=== PATIENT | female | born 1935 | race Caucasian/White ===

== ENCOUNTER 2024-10-05 12:57 | Observation (INO) | payer MEDICARE, BC, SELFPAY ==
[2024-10-05 13:35] VITALS: PULSE 94; O2SAT 99; BMI 19.8
--- NOTE | 2024-10-05 13:38 | EKG_ITS ---
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
--- NOTE | 2024-10-05 13:38 | XR_ITS ---
Examination: CT brain head without contrast. 2-D sagittal coronal reconstructions Date and time of exam:October 05, 2024 1412 hours INDICATIONS: Slurred speech expressive aphasia beginning 30 minutes ago CTDI: vol (mGy):47 DLP: (mGycm):918 Technique: Multiple CT axial sections of the brain have been obtained, 5 mm slice thickness. Contrast has not been administered. 2-D sagittal, coronal reconstructions have been obtained Low dose protocols were performed. One or more of the following dose reduction techniques were used; automated exposure control, adjustment of the mA and/or KV according to patient size, use of iterative reconstruction technique. Findings: No significant ventricular enlargement. Intra-axial or extra-axial hemorrhage density is not seen. No mass effect or midline shift Basal cisterns are not remarkable. Fourth ventricle is midline. Cranial vault intact. Impression: Negative for acute hemorrhage, mass effect or midline shift Consider brain MRI follow-up, stroke protocol
--- NOTE | 2024-10-05 13:38 | PD.EDADULT ---
ED General RME/HPI General Chief complaint: General Adult/Misc Complain Stated complaint: WEAKNESS Time Seen by Provider: 10/05/24 13:31 Arrival date/time: 10/05/24 12:57 CC: Garbled speech HPI patient states that she approximately 45 minutes ago and lasting for approximately 30 minutes the patient had garbled speech and was unable to express herself. Patient had a similar episode 3 weeks ago and had a complete stroke workup at [facility]. Patient was diagnosed with a TIA. Patient is awake alert oriented x 3 no focal deficits not in any acute distress with no complaints. Related Data Allergies Allergy/AdvReac Type Severity Reaction Status Date / Time clopidogrel [From Plavix] Allergy Rash Verified 10/05/24 13:41 Review of Systems Review of Systems Narrative Review of Systems: GEN: No fever, no chills, no weight loss EYES: No discharge, no visual changes, no pain HEENT: No ear pain, no congestion, no sore throat PULM: No shortness of breath, no cough, no congestion CV: No chest pain, no dyspnea on exertion, no palpitations GI: No nausea, no vomiting, no diarrhea, no pain, no constipation : No frequency, no urgency, no dysuria MUSC/SKEL: No joint pain, no back pain SKIN: No rash PSYCH: No hallucinations, no depression HEME/LYMPH: No easy bleeding or bruising tendencies NEURO: No weakness, no headache ED Exam Narrative Physical exam: [General: Not in any acute distress Head normocephalic HEENT: Eyes: Pale. The patient had LASIK surgery in both eyes, pupils are PERRLA EOMs are intact. Nose no rhinorrhea, mouth smile symmetrical pink dry membranes uvula is midline swallow symmetrical no focal deficits all other subsystems of ATTR within acceptable limits Neck is supple nontender, no JVD Chest equal chest rise nontender to palpation Respiratory: Clear to auscultation no wheezes crackles or rubs CV: Rate rhythm is regular no murmurs rubs or clicks Abdomen is soft nontender no masses positive bowel sounds all 4 quadrants Back: No CVA tenderness no spinous process tenderness from cervical spine thoracic and lumbar spine Skin: Intact no petechiae rash induration ulceration or crepitus Extremities: Moving all extremity against resistance cap refill less than 2 seconds neurosensory intact Neuro: Awake alert oriented x3 Glascow coma 15 no focal deficits] cranial nerves II through XII are grossly intact. Course Course Course Narrative: Patient's case discussed with Dr. Jluis Rubin for Dr. Villavicencio who agrees to except the patient for admission. Quality Measures none Orders Category Date Time Status EKG (ED ONLY) *Do not use* NOW Care 10/05/24 13:38 Completed MRI Screening NOW Care 10/05/24 15:55 Active Consult to Neurology / Tele-Neurology Stat Cons 10/05/24 16:[address] head/brain wo con Stat Exams 10/05/24 13:38 Completed EKG (ED Only) Stat Exams 10/05/24 13:38 Ordered MR head/brain wo con Stat Exams 10/05/24 Ordered B-Type Natriuretic Peptide Stat Lab 10/05/24 13:57 Completed CBC Stat Lab 10/05/24 13:57 Completed Comprehensive Metabolic Panel Stat Lab 10/05/24 13:57 Completed Drug Screen,Urine Stat Lab 10/05/24 14:01 Completed LDH (Lactate Dehydrogenase) Stat Lab 10/05/24 13:57 Completed Magnesium Stat Lab 10/05/24 13:57 Completed Partial Thromboplastin Time Stat Lab 10/05/24 13:57 Completed Prothrombin Time with INR Stat Lab 10/05/24 13:57 Completed Troponin I Stat Lab 10/05/24 13:57 Completed Urinalysis Stat Lab 10/05/24 14:01 Completed hydrALAZINE INJ [Apresoline Inj] Med 10/05/24 16:17 Discontinued 10 mg IV X1 ONE Vital Signs Vital signs: Vital Signs Temperature 98.1 F 10/05/24 13:41 Pulse Rate 87 10/05/24 13:41 Respiratory Rate 17 10/05/24 13:41 Blood Pressure 184/94 H 10/05/24 13:41 Pulse Oximetry (%) 97 10/05/24 13:41 Oxygen Delivery Method Room Air 10/05/24 13:41 [facility] Patient data External records reviewed:: [facility] previous records and EMS form Clinical information provided by:: patient and EMS Social determinants that could affect healthcare access:: none Patient has the following chronic illnesses:: Recent TIA How is presenting disease/condition affected by chronic disease/condition?: uneffected by Evaluation data The following diagnostics were reviewed and interpreted by me:: lab results, radiology exam(s) and EKG tracing(s) Lab and/or radiology exams considered but not ordered:: EKG performed at 1500 shows ventricular rate of 79 NM interval 157 QRS of 87 QTc of 400 is normal sinus rhythm. Interpretation Summary: TIA Medications Medications considered but not ordered:: None Medication administrations:: Medication Administration History Discontinued Medications Hydralazine HCl (Hydralazine Inj 20 Mg/Ml Vial) 10 mg IV X1 ONE Stop: 10/05/24 16:18 None Consultations Consultation(s) initiated? (list below): Yes Diagnosis Differential Diagnosis ED Complaint MDM: TIA CVA altered mental status Most likely diagnosis given after review of the tests above:: TIA Admission Indicated Admission indicated?: indicated Explain why admission is indicated or not indicated:: Further medical management Admission Request Was there a request for admission?: No Disposition Plan Disposition Plan: Admit Medical Decision Making Differential Diagnosis Differential Diagnosis: TIA CVA altered mental status Lab Data 10/05/24 13:57 10/05/24 13:57 Labs: Lab Results 10/05/24 10/05/24 Range/Units 13:57 14:01 WBC 8.2 (3.6-11.0) Thou/mm3 RBC 4.20 (4.00-5.20) Miln/mm3 Hgb 12.6 (12.0-16.0) g/dL Hct 38.7 (36.0-46.0) % MCV 92 (80-100) fL MCH 30.0 (25.0-35.0) pg MCHC 32.6 (31.0-37.0) g/dl RDW Std Deviation 43.4 (36.4-46.3) fL Plt Count 334 (140-440) Thou/mm3 Neut % (Auto) 73 (37-80) % Lymph % (Auto) 17 (10-50) % [place] % (Auto) 9 (0-12) % Eos % (Auto) 1 (0-10) % Baso % (Auto) 1 (0-2.5) % Neut # (Auto) 6.0 (1.8-7.7) Thou/mm3 Lymph # (Auto) 1.4 (1.0-4.8) Thou/mm3 [place] # (Auto) 0.7 (0.0-0.8) Thou/mm3 Eos # (Auto) 0.1 (0.0-0.5) Thou/mm3 Baso # (Auto) 0.1 (0.0-0.2) Thou/mm3 Immature Gran # (Auto) 0.03 H (0.00-0.00) Thou/mm3 Absolute Nucleated RBC 0.00 (0.00-0.00) Thou/mm3 Immature Gran % 0 (0-0) % Nucleated RBC % 0 (0) /100 WBC PT 11.4 (9.0-12.2) Seconds INR 1.0 (0.9-1.3) APTT 26.5 (22.0-36.0) Seconds Sodium 140 (136-145) mMol/L Potassium 4.4 (3.4-5.1) mMol/L Chloride 105 (98-107) mMol/L Carbon Dioxide 29.5 (20.0-31.0) mMol/L Anion Gap 6 L (7-16) BUN 16 (9-23) mg/dL Creatinine 0.9 (0.6-1.3) mg/dL Estim Creat Clear Calc 34.0 L (>60) mL/min eGFR > 60 (60 - ) See Note BUN/Creatinine Ratio 18 (12-20) Ratio Glucose 97 (74-106) mg/dL Calculated Osmolality 280 (275-295) Calcium 10.8 H (8.3-10.6) mg/dL Corrected Calcium 10.8 H (8.5-10.1) mg/dL Magnesium 2.2 (1.6-2.6) mg/dL Total Bilirubin 0.5 (0.3-1.2) mg/dL AST 29 (0-34) U/L ALT 9 L (10-49) U/L Alkaline Phosphatase 110 (46-116) U/L Lactate Dehydrogenase 201 (120-246) U/L Troponin I < 0.020 (0.0-0.045) ng/mL B-Natriuretic Peptide 155 H (0-100) pg/mL Total Protein 7.0 (5.7-8.2) gm/dL Albumin 4.4 (3.4-4.8) gm/dL Globulin 2.6 (2.3-3.5) gm/dL Albumin/Globulin Ratio 1.7 (1.2-2.2) Ur Collection Type Clean Catch Urine Color Lt-Yellow (Lt Yel-Yel) Urine Clarity Clear (Clear/Hazy) Urine pH 7.0 (5.0-7.0) Ur Specific [place] 1.013 (1.001-1.035) Urine Protein Trace (Neg - Trace) Urine Glucose (UA) Negative (Negative) Urine Ketones Negative (Negative) Urine Blood Negative (Negative) Urine Nitrite Negative (Negative) Urine Bilirubin Negative (Negative) Urine Urobilinogen (Auto) Negative (0.0-1.0) mg/dL Ur Leukocyte Esterase Negative (Negative) Urine RBC 2 (0-3) /hpf Urine WBC 1 (0-5) /hpf Ur Squamous Epith Cells 0 (0-5) /hpf Urine Bacteria None (None) Hyaline Casts < 1 (0-1) /hpf Urine Opiates Screen Negative (Negative) Urine Fentanyl Screen Negative (Negative) Ur Barbiturates Screen Negative (Negative) U Amphetamin/Meth Scrn Negative (Negative) U Benzodiazepines Scrn Negative (Negative) U Cocaine Metab Screen Negative (Negative) U Marijuana (THC) Screen Negative (Negative) Discharge Plan Plan Patient Disposition: Other Care w/in Hosp (SDC/KP) Prescriptions/Referrals Referrals: Vicente George MD [Primary Care Provider] - In 1 week Problem List Clinical Impression: Brain TIA Patient/Caregiver Discharge Instructions Print Language: Lao Stand Alone Forms: Sarahi Award Info., Patient Portal Info Letter PA/SEB Supervising Physician EL/SEB Supervising Physician: Ben Reece ENP
[2024-10-05 13:41] VITALS: BP 184/94; PULSE 87; RESP 17; TEMP 36.7; O2SAT 97
--- NOTE | 2024-10-05 13:47 | PC.NURSE ---
GUEVARA FROM HOME, PER EMS SHE WAS TALKING ON THE PHONE, UNABLE TO GET HER WORDS OUT. PER EMS SHE HAD A TIA ABOUT 3 WKS AGO, WAS PUT ON PLAVIX, HAD AN ALLERGIC REACTION AND WAS TAKEN OFF OF IT, AND NOW ONLY ON ASA. WHEN EMS ARRIVED ON SCENE PT DID NOT HAVE ANY SLURRED SPEECH, FACIAL DROOPING OR ANY DEFICITS THAT THEY NOTICED, HERE PT ABLE TO ANSWER ALL QUESTIONS APPROPRIATELY W/GCS 15. PT IS SHAKING, HOWEVER DOES HAVE PARKINSONS. PROVIDER WAS AT BEDSIDE TO EVALUATE PT. CALL TREVIÑO IN REACH, SON AT BEDSIDE ATTENTIVE TO PT.
[2024-10-05 14:09] LABS: Basophils # (Auto) 0.1 Thou/mm3 (0.0-0.2); Basophils % (Auto) 1 % (0-2.5); Eosinophils # (Auto) 0.1 Thou/mm3 (0.0-0.5); Eosinophils % (Auto) 1 % (0-10); Hematocrit 38.7 % (36.0-46.0); Hemoglobin 12.6 g/dL (12.0-16.0); Immature Granulocytes % (Auto) 0 % (0-0); Immature Granulocytes Auto 0.03 Thou/mm3 (0.00-0.00); Lymphocytes # (Auto) 1.4 Thou/mm3 (1.0-4.8); Lymphocytes % (Auto) 17 % (10-50); Mean Corpuscular HGB Conc 32.6 g/dl (31.0-37.0); Mean Corpuscular Volume 92 fL (80-100); Monocytes # (Auto) 0.7 Thou/mm3 (0.0-0.8); Monocytes % (Auto) 9 % (0-12); Neutrophils % (Auto) 73 % (37-80); Nucleated Red Blood Cell % 0 /100 WBC (0); Platelet Count 334 Thou/mm3 (140-440); RDW Standard Deviation 43.4 fL (36.4-46.3); White Blood Count 8.2 Thou/mm3 (3.6-11.0)
[2024-10-05 14:34] LABS: Partial Thromboplastin Time 26.5 Seconds (22.0-36.0); Prothrombin Time 11.4 Seconds (9.0-12.2)
[2024-10-05 14:36] LABS: Alanine Aminotransferase 9 U/L (10-49); Albumin, Serum 4.4 gm/dL (3.4-4.8); Albumin/Globulin Ratio 1.7 (1.2-2.2); Alkaline Phosphatase 110 U/L (46-116); Anion Gap 6 (7-16); Aspartate Amino Transferase 29 U/L (0-34); BUN/Creatinine Ratio 18 Ratio (12-20); Bilirubin,Total 0.5 mg/dL (0.3-1.2); Blood Urea Nitrogen 16 mg/dL (9-23); Calcium 10.8 mg/dL (8.3-10.6); Calcium (Corrected) 10.8 mg/dL (8.5-10.1); Carbon Dioxide 29.5 mMol/L (20.0-31.0); Chloride 105 mMol/L (98-107); Creatinine (Component) 0.9 mg/dL (0.6-1.3); Globulin 2.6 gm/dL (2.3-3.5); Glucose 97 mg/dL (74-106); Magnesium 2.2 mg/dL (1.6-2.6); Osmolality,Calculated 280 (275-295); Potassium 4.4 mMol/L (3.4-5.1); Sodium 140 mMol/L (136-145); Troponin I < 0.020 ng/mL (0.0-0.045); eGFR > 60 See Note
[2024-10-05 14:53] LABS: B-Type Natriuretic Peptide 155 pg/mL (0-100)
[2024-10-05 14:59] LABS: Collection Type, Urine Clean Catch; Squamous Epithelial Cell,Urine 0 /hpf (0-5)
[2024-10-05 15:12] LABS: LDH (Lactate Dehydrogenase) 201 U/L (120-246)
[2024-10-05 15:32] LABS: Bilirubin,Urine Negative (Negative); Blood,Urine Negative (Negative); Clarity,Urine Clear (Clear/Hazy); Color,Urine Lt-Yellow (Lt Yel-Yel); Glucose, Urine Negative (Negative); Hyaline Casts,Urine < 1 /hpf (0-1); Ketones,Urine Negative (Negative); Leukocyte Esterase,Urine Negative (Negative); Nitrite,Urine Negative (Negative); Protein,Urine Trace (Neg - Trace); RBC,Urine 2 /hpf (0-3); Specific Gravity,Urine 1.013 (1.001-1.035); Urobilinogen,Urine Negative mg/dL (0.0-1.0); WBC,Urine 1 /hpf (0-5)
--- NOTE | 2024-10-05 16:03 | PD.TNEURO ---
Tele Neuro Consultation Consultation Date 10/05/24 Most Recent Vital Signs Last Vital Signs Temp 98.1 F 10/05/24 13:41 Pulse 87 10/05/24 13:41 Resp 17 10/05/24 13:41 BP 184/94 H 10/05/24 13:41 Pulse Ox 97 10/05/24 13:41 O2 Del Method Room Air 10/05/24 13:41 Laboratory-Coagulation Panel PT 11.4 Seconds (9.0-12.2) 10/05/24 13:57 INR 1.0 (0.9-1.3) 10/05/24 13:57 APTT 26.5 Seconds (22.0-36.0) 10/05/24 13:57 Consultation Narrative [facility] TeleNeurology Consult Services Stat Consult Patient Name:???ROSE ARRIAGA Date of :???1935 Date of Service:???10/05/2024 15:21:35 Diagnosis:?G45.9 - Transient cerebral ischemic attack, unspecified Impression 88yoF hx of Parkinson, HLD, TIA present with transient episode of speech difficulty, lasting about 15 minutes without other focal weakness/numbness. Had similar episode 3 weeks ago, diagnosed with TIA, discharged with aspirin. Allergic to Plavix. Suppose to have appointment with vascular surgeon on Saturday. CT head today neg for acute finding. SBP on arrival were elevated at 180s. ABCD2 score of 4. Consider the elevated ABCD2 score and elevate BP and unclear if facial asymmetry is baseline, recommend repeat MR brain w/o to rule out new changes and monitor overnight. If MR brain is normal and no change in symptoms, ok to discharge and follow up with PCP outpatient. With elevated BP so far, consider restarting one BP medication either inpatient or with PCP. Recommendations: Our recommendations are outlined below. Diagnostic Studies :MRI head without contrast Laboratory Studies :Lipid panel I orderedHemoglobin A1c Antithrombotic Medication :Aspirin 81 mg PO daily Statins for LDL goal less than 70 Nursing Recommendations :IV Fluids, avoid dextrose containing fluids, Maintain euglycemia Neuro checks q4 hrs x 24 hrs and then per shift Head of bed 30 degrees Continue with Telemetry Consultations :Recommend Speech therapy if failed dysphagia screen Physical therapy/Occupational therapy Disposition :Neurology will follow Metrics: Dispatch Time: 10/05/2024 15:21:35 Callback Response Time: 10/05/2024 15:22:14 Primary Provider Notified of Diagnostic Impression and Management Plan on: 10/05/2024 15:55:10 ImagingCT head no acute finding Chief Complaint: transient speech issue History of Present Illness:Patient is a 88 year old Female. Patient was trying to speak to her son and realized she cannot understand what she's was trying to say. This occurred around noon and gradually got better over next 15 minutes. Denies other deficit during this time. About 3 weeks ago she had the same episode. She was told to present to ER and was told there is something at her carotid artery. She was there for 3 days. She had MRI and was told there was no stroke. She has appointment with vascular surgery next Saturday. She was started on Plavix but stopped after allergic reaction. Currently on aspirin 81mg daily. She was taken off both BP medication during the admission due to SBP consistently in 110s. About 5-6 years ago she had another spell that affected her walking. Did recover after a few weeks. Past Medical History: Other PMH:? Parkinson, HLD, TIA Medications: No Anticoagulant use? Antiplatelet use:?Yes?aspirin 81mg Reviewed EMR for current medications Allergies:? Description:?Plavix Social History: Smoking: No Alcohol Use: No Family History: There is no family history of premature cerebrovascular disease pertinent to this consultation ROS : 14 Points Review of Systems was performed and was negative except mentioned in HPI. Past Surgical History: There Is No Surgical History Contributory To Today?s Visit Examination: BP(151/111),?Pulse(87), 1A: Level of Consciousness - Alert; keenly responsive?+ 0 1B: Ask Month and Age - Both Questions Right?+ 0 1C: Blink Eyes & Squeeze Hands - Performs Both Tasks?+ 0 2: Test Horizontal Extraocular Movements - Normal?+ 0 3: Test Visual Garibay - No Visual Loss?+ 0 4: Test Facial Palsy (Use Grimace if Obtunded) - Minor paralysis (flat nasolabial fold, smile asymmetry)?+ 1 5A: Test Left Arm Motor Drift - No Drift for 10 Seconds?+ 0 5B: Test Right Arm Motor Drift - No Drift for 10 Seconds?+ 0 6A: Test Left Leg Motor Drift - No Drift for 5 Seconds?+ 0 6B: Test Right Leg Motor Drift - No Drift for 5 Seconds?+ 0 7: Test Limb Ataxia (FNF/[place]el-[place]) - No Ataxia?+ 0 8: Test Sensation - Normal; No sensory loss?+ 0 9: Test Language/Aphasia - Normal; No aphasia?+ 0 10: Test Dysarthria - Normal?+ 0 11: Test Extinction/Inattention - No abnormality?+ 0 NIHSS Score:?1 NIHSS Free Text :?On picture patient thinks her face looks normal. Son is unsure if the facial asymmetric is normal or not Spoke with :?Dr. Reece This consult was conducted in real time using interactive audio and video technology. Patient was informed of the technology being used for this visit and agreed to proceed. Patient located in hospital and provider located at home/office setting. Patient is being evaluated for possible acute neurologic impairment and high probability of imminent or life - threatening deterioration.I spent total of 35 minutes providing care to this patient, including time for face to face visit via telemedicine, review of medical records, imaging studies and discussion of findings with providers, the patient and / or family. Dr Chadwick Hall [facility] For Inpatient follow-up with [facility] physician please call [facility] at . As we are not an outpatient service for any post hospital discharge needs please contact the hospital for assistance. If you have any questions for the [facility] physicians or need to reconsult for clinical or diagnostic changes please contact us via C at .
[2024-10-05 16:16] LABS: Amphetamine/Methamp Scrn,U Negative (Negative); Barbiturate Screen,Urine Negative (Negative); Benzodiazepines Screen,Urine Negative (Negative); Benzoylecgonine Screen, Ur Negative (Negative); Fentanyl Screen,Urine Negative (Negative); Opiate Screen,Urine Negative (Negative); THC Screen,Urine Negative (Negative)
[2024-10-05 16:50] VITALS: BP 175/93; PULSE 84; RESP 18; TEMP 36.8; O2SAT 99
--- NOTE | 2024-10-05 17:37 | ESHP_ITS ---
<Statement entered by Nicole Awan MD - 10/05/24 19:39> I discussed with and supervised my co-resident involved in the care of this patient. I agree with the assessment and plan as documented above. Patient is a 88 year old female with PMH of HTN, recently discharged from OSH for TIA on aspirin (allergic to plavix) who presents to the ER for word salad that happened today at 11am while picking oranges outside her home. Symptoms lasted about 15 minutes so patient and family called EMS and was brought to the ER. Symptoms had resolved by the time they came to the ER. Vitals were slightly hypertensive and labs largely unremarkable. Tele-neurology recommended admit for MRI. We will also obtain records from OSH, where she was discontinued off her anti-hypertensives due to being normotensive at the time. Nicole Awan MD PGY-3 Documentation for date of: 10/05/24 HPI History of Present Illness History of present illness: Maria Del Rosario Richey is an 88F with PMHx HTN, TIA, Parkinson's presented to the ED on 10/05/24 for difficulty understanding her own speech. Patient states that around 12pm today she was speaking to her son when she could not understand her own speech. Son at bedside states that he could understand her 100% clearly during this time, however patient states that she could not understand what she was saying. Patient's son states that she was clearly speaking can you hear me? I do not understand what I am saying. Patient's son stated at that time he did not note any facial droop, upper or lower extremity weakness, changes in mentation or confusion. Symptoms persisted for 3 to 4 minutes and subsequently completely resolved by 15 min. Patient was recently admitted to [facility] for similar symptoms 3 weeks ago. Imaging was negative except for carotid stenosis of unspecified site. Discharged with diagnosis of TIA and prescribed DAPT and atorvastatin 80 Mg. However, patient had allergic reaction to Plavix?patient states that she breaks out in severe hives. Plavix discontinued by PCP Dr. George-states that he is going to wait for reaction to resolve until trying her on another anti-platelet therapy. Patient is planned to follow-up with Dr. Griffith vascular surgeon on next Saturday for carotid stenosis. In the emergency department patient was hypertensive at 184/94, was given hydralazine 10 in the emergency department. Subsequent blood pressure on physical examination in the ED 168/82. Rest of vital signs stable. Labs normal, CBC normal. CT head negative U tox negative, urine normal. Patient on exam is ANO x 4, GCS 15, physical exam not significant for any neurological deficits. CN II to XII intact, ocdu-ei-zibs normal, finger-nose normal. Strength 5 out of 5 bilaterally upper and lower extremities. Resting tremor on exam- pt says that this is persistent from her Parkinson's. Left lower lip appears minimally if at all drooped. After repeated extensive, repeated questioning with patient and son they both state that this appears to be her normal. Teleneurology consulted in the emergency department and given patient's recent history of TIA recommend observation with repeat MRI. ABCD2 score of 4. 1A: Level of Consciousness - Alert; keenly responsive?+ 0 1B: Ask Month and Age - Both Questions Right?+ 0 1C: Blink Eyes & Squeeze Hands - Performs Both Tasks?+ 0 2: Test Horizontal Extraocular Movements - Normal?+ 0 3: Test Visual Garibay - No Visual Loss?+ 0 4: Test Facial Palsy (Use Grimace if Obtunded) - Minor paralysis (flat nasolabial fold, smile asymmetry)?+ 1 5A: Test Left Arm Motor Drift - No Drift for 10 Seconds?+ 0 5B: Test Right Arm Motor Drift - No Drift for 10 Seconds?+ 0 6A: Test Left Leg Motor Drift - No Drift for 5 Seconds?+ 0 6B: Test Right Leg Motor Drift - No Drift for 5 Seconds?+ 0 7: Test Limb Ataxia (FNF/Heel-Hodge) - No Ataxia?+ 0 8: Test Sensation - Normal; No sensory loss?+ 0 9: Test Language/Aphasia - Normal; No aphasia?+ 0 10: Test Dysarthria - Normal?+ 0 11: Test Extinction/Inattention - No abnormality?+ 0 NIHSS Score:?1 PMH: Parkinsons, TIA, HTN PSH: Tonsillectomy- distant past Allergies: Plavix- patient breaks out in severe hives Patient was admitted for observation, work-up, & management of acute CVA/TIA Review of Systems Review of Systems Narrative Review of Systems: negative except for those in above HPI Exam Vital Signs Temp Pulse Resp BP Pulse Ox O2 Del Method 98.3 F 84 18 175/93 H 99 Room Air 10/05/24 16:50 10/05/24 16:50 10/05/24 16:50 10/05/24 16:50 10/05/24 16:50 10/05/24 16:50 Narrative Exam GENERAL: NAD, NC/AT, responsive/cooperative. 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 Strength 5/5 bilaterally UE and LE. Resting tremor on exam. HEENT: Moist mucosa. Eyes open, symmetrical, & clear CARDIO: No chest pain on palpation. Heart RRR, no obvious murmurs PULM: No noted coughing/dyspnea. Lungs CTA B/L, no R/W/R GI: Abdomen soft, nondistended, no pain on palpation. BSx4 URO/BILLER:: No further abnormalities noted. SKIN/MSK/EXT: No wounds/rashes/edema/amputations, no pain on palpation. Pedal pulses present B/L Results: Labs 10/06/24 05:20 10/06/24 05:20 Labs: Short CBC 10/05/24 Range/Units 13:57 WBC 8.2 (3.6-11.0) Thou/mm3 Hgb 12.6 (12.0-16.0) g/dL Hct 38.7 (36.0-46.0) % Plt Count 334 (140-440) Thou/mm3 BMP 10/05/24 13:57 Sodium 140 Potassium 4.4 Chloride 105 Carbon Dioxide 29.5 BUN 16 Creatinine 0.9 Glucose 97 Calcium 10.8 H Cardiac Enzymes 10/05/24 Range/Units 13:57 Troponin I < 0.020 (0.0-0.045) ng/mL Liver Function 10/05/24 Range/Units 13:57 Total Bilirubin 0.5 (0.3-1.2) mg/dL AST 29 (0-34) U/L ALT 9 L (10-49) U/L Alkaline Phosphatase 110 (46-116) U/L Albumin 4.4 (3.4-4.8) gm/dL Urine 10/05/24 Range/Units 14:01 Urine Color Lt-Yellow (Lt Yel-Yel) Urine Clarity Clear (Clear/Hazy) Urine pH 7.0 (5.0-7.0) Ur Specific [place] 1.013 (1.001-1.035) Urine Protein Trace (Neg - Trace) Urine Glucose (UA) Negative (Negative) Quality Measures Quality Measures none Advance care planning discussed with:: patient Medications Home Medications and Allergies Home Medications ?Medication ?Instructions ?Recorded ?Confirmed ?Type aspirin 81 mg tablet,delayed 81 mg PO QDAY 10/06/24 10/06/24 History release (Justino Low Dose Aspirin) atorvastatin 80 mg tablet 80 mg PO QDAY 10/06/24 10/06/24 History buspirone 5 mg tablet 5 mg PO HS 10/06/24 10/06/24 History carbidopa 10 mg-levodopa 100 mg 1 tab PO QID 10/06/24 10/06/24 History tablet ibuprofen 200 mg tablet (Advil) 200 mg PO QDAY PRN Anxiety 10/06/24 10/06/24 History multivitamin 1 tab PO QAM 10/06/24 10/06/24 History multivitamin 1 tab PO QDAY 10/06/24 10/06/24 History polyethylene glycol 3350 17 gram 17 g PO 2 X WEEKLY PRN Constipation 10/06/24 10/06/24 History oral powder packet (Miralax) Allergies Allergy/AdvReac Type Severity Reaction Status Date / Time clopidogrel [From Plavix] Allergy Rash Verified 10/05/24 13:41 Visit Medications Acetaminophen (Acetaminophen 325 Mg Tablet) 650 mg PO Q6H PRN PRN Reason: PAIN SCALE 1-3 (mild Stop: 11/04/24 17:12 Acetaminophen (Acetaminophen 325 Mg Tablet) 650 mg PO Q6H PRN PRN Reason: Fever >101.5 Stop: 11/04/24 17:18 Enoxaparin Sodium (Enoxaparin Sod Inj 40 Mg/0.4 Ml Syringe) 40 mg SC QDAY CAMILO Stop: 10/20/24 08:59 Ondansetron HCl (Ondansetron Inj 2 Mg/Ml Inj 2 Ml) 4 mg IV Q6H PRN; Protocol PRN Reason: NAUSEA OR VOMITING Stop: 11/04/24 17:12 Pantoprazole Sodium (Pantoprazole Inj 40 Mg Vial) 40 mg IVP QDAY CAMILO Stop: 11/04/24 17:29 Discontinued Medications Hydralazine HCl (Hydralazine Inj 20 Mg/Ml Vial) 10 mg IV X1 ONE Stop: 10/05/24 16:18 Assessment & Plan Plan Patient is a 88 F with a PMH TIA, HTN, Parkinsons who is admitted for observation, work-up, & management of acute CVA/TIA. #Acute TIA vs CVA - (Tele)Neuro Dr. Hall consulted: recommend repeat MR brain w/o to rule out new changes and monitor overnight. If MR brain is normal and no change in symptoms, ok to discharge and follow up with PCP outpatient. With elevated BP so far, consider restarting one BP medication either inpatient or with PCP. - CT-head (-) - Obtaining records from [facility] - Lipid panel, A1c, thyroid labs pending, f/u - PT/OT/Speech/swallow eval ordered - Elevate HOB 30 degrees - Neurochecks Q4 hrs - Aspirin 81mg, DVT ppx, pain mgmt - Atorvastatin 80 mg - Pending MR-brain w/out contrast #Parkinson Resting tremor on exam - restarting patient's home Carbidopa-Levodopa 10-100 TID #Hypertension Pt HTN at 168/82 in the emergency department - Amlodipine 2.5 mg PO Qday Diet:Regular diet GI: none DVT: SCDs, Exoxaparin [place]: None Lines: Peripheral Dispo: Tele Med Rec: Pending, f/u Code:Full Patient seen and assessed with my Attending, Dr. Maye Gonzalez DO PGY1 Attending Provider Attestation/Addendum Eva Olvera DO, attest that I was physically present for the ortiz portions of the service and evaluated the patient with the resident and I reviewed and discussed the case with the resident and agree with the resident's findings and plans of care as documented above Patient is an 88-year-old female with past medical history of hypertension, TIA was brought to ED due to dysarthria. Patient states that she was talking to her son when she went to get the correct words out, but she was comprehending patient speech without issue. Patient was recently admitted to [facility] 3 weeks ago during which she had similar symptoms and was diagnosed with TIA. She was also found to have some carotid stenosis and was referred to vascular with where she has a appointment on Saturday next week. Patient was placed on aspirin and Plavix in addition to atorvastatin, but broke out in hives with Plavix. Patient has been off Plavix since. Her blood pressure medications were also discontinued as she was told that her blood pressure was low?normal at [facility]. Upon presentation to the ED today, patient was noted to have elevated BP of 184/94. Teleneuro was called and recommended tight BP control as it is a likely cause of her possible TIA and dysarthria. Recommend MRI to rule out acute CVA. Will admit patient to telemetry for tight BP control and possible CVA vs TIA workup. Patient otherwise has no focal neurological deficits and is able to articulate without issue.
[2024-10-05 18:24] VITALS: BP 156/80; PULSE 81
[2024-10-05] MEDS: hydrALAZINE INJ 20 MG/ML VIAL 10 MG IV (18:24)
[2024-10-05 18:39] LABS: Glucose Estimated Average 94 mg/dL (80-131); Hemoglobin A1C 4.9 % Hgb (4.8-6.0)
[2024-10-05] MEDS: ASPIRIN EC 81 MG TABEC PO (18:55)
[2024-10-05 20:00] VITALS: BP 149/82; PULSE 100; PULSE 85; RESP 23; TEMP 36.5; O2SAT 96
[2024-10-05] MEDS: ATORVASTATIN CALCIUM 20 MG TABLET 80 MG PO (20:30)
[2024-10-05] MEDS: CARBIDOPA/LEVODOPA 10/100 MG TABLET 1 TAB PO (20:31)
[2024-10-05 23:46] VITALS: BP 104/50; PULSE 94; RESP 18; TEMP 36.1; O2SAT 96
[2024-10-06] VITALS: PULSE 100
--- NOTE | 2024-10-06 | XR_ITS ---
Examinations: MRI Brain without intravenous contrast. MRA brain without intravenous contrast. MRA carotids without intravenous contrast 3-D vascular reconstructions Date and time of exam: October 06, 2024 0633 hrs. Indications: Onset yesterday slurred speech, similar episode 3 weeks ago, diagnosis transient ischemic attack outside hospital 3 weeks ago Technique: Multiple axial and sagittal images of the brain have been obtained MRA brain carotid images without contrast obtained, including 3-D postprocessing, vascular maximum intensity projection images Findings: [place] is not enlarged. The optic chiasm and infundibular stalk are not remarkable. Prepontine and interpeduncular cisterns are not enlarged. No localized enlargement of the medulla or dimitry. Fourth ventricle and cerebellar tonsils normal in position. Subacute hemorrhage is not seen. Fourth ventricle is midline. Mass in the cerebellopontine angle region is not evident. 7th and 8th nerve complexes exhibits symmetry. Globes are symmetrical with no retro-orbital mass. Increased white matter signal prominent Diffusion-weighted images demonstrate no foci restricted diffusion Mass-effect upon the ventricular system is not identified. MRA carotid images degraded by patient motion. MRA brain images mild to moderate cerebral arterial irregularity, no large vessel occlusions Impression: Negative for acute hemorrhage mass effect or midline shift No acute infarct Prominent microvascular white matter change No large vessel occlusions MRA carotid images are degraded by patient motion, consider correlation with carotid Doppler sonography follow-up
[2024-10-06] MEDS: BusPIRone HCL 5 MG TABLET PO (01:18)
[2024-10-06 04:00] VITALS: BP 144/67; PULSE 81; PULSE 83; RESP 15; TEMP 36.3; O2SAT 98
[2024-10-06] MEDS: CARBIDOPA/LEVODOPA 10/100 MG TABLET 1 TAB PO ×2 (05:22→13:59)
[2024-10-06 05:37] LABS: Basophils # (Auto) 0.1 Thou/mm3 (0.0-0.2); Basophils % (Auto) 1 % (0-2.5); Eosinophils # (Auto) 0.1 Thou/mm3 (0.0-0.5); Eosinophils % (Auto) 1 % (0-10); Hematocrit 35.6 % (36.0-46.0); Hemoglobin 11.6 g/dL (12.0-16.0); Immature Granulocytes % (Auto) 0 % (0-0); Immature Granulocytes Auto 0.04 Thou/mm3 (0.00-0.00); Lymphocytes # (Auto) 1.9 Thou/mm3 (1.0-4.8); Lymphocytes % (Auto) 20 % (10-50); Mean Corpuscular HGB Conc 32.6 g/dl (31.0-37.0); Mean Corpuscular Hemoglobin 30.1 pg (25.0-35.0); Mean Corpuscular Volume 92 fL (80-100); Monocytes # (Auto) 0.8 Thou/mm3 (0.0-0.8); Monocytes % (Auto) 9 % (0-12); Neutrophils # (Auto) 6.5 Thou/mm3 (1.8-7.7); Neutrophils % (Auto) 69 % (37-80); Nucleated Red Blood Cell % 0 /100 WBC (0); Platelet Count 312 Thou/mm3 (140-440); RDW Standard Deviation 43.9 fL (36.4-46.3); Red Blood Count 3.86 Miln/mm3 (4.00-5.20); White Blood Count 9.5 Thou/mm3 (3.6-11.0)
[2024-10-06 05:47] VITALS: BMI 18.9
[2024-10-06 06:38] LABS: Alanine Aminotransferase 24 U/L (10-49); Albumin, Serum 4.3 gm/dL (3.4-4.8); Albumin/Globulin Ratio 1.8 (1.2-2.2); Alkaline Phosphatase 97 U/L (46-116); Anion Gap 9 (7-16); Aspartate Amino Transferase 20 U/L (0-34); BUN/Creatinine Ratio 21 Ratio (12-20); Bilirubin,Total 0.6 mg/dL (0.3-1.2); Blood Urea Nitrogen 19 mg/dL (9-23); Calcium 9.7 mg/dL (8.3-10.6); Calcium (Corrected) 9.7 mg/dL (8.5-10.1); Carbon Dioxide 27.1 mMol/L (20.0-31.0); Chloride 104 mMol/L (98-107); Cholesterol 151 mg/dL (132-200); Creatinine (Component) 0.9 mg/dL (0.6-1.3); Estimated Creatinine Clearance 32.5 mL/min (>60); Globulin 2.4 gm/dL (2.3-3.5); Glucose 89 mg/dL (74-106); HDL Cholesterol 75 mg/dL (40-60); LDL Cholesterol,Calculated 66 mg/dL (0-130); Magnesium 2.1 mg/dL (1.6-2.6); Osmolality,Calculated 280 (275-295); Phosphorous 4.2 mg/dL (2.4-5.1); Potassium 3.9 mMol/L (3.4-5.1); Sodium 140 mMol/L (136-145); Total Protein 6.7 gm/dL (5.7-8.2); Triglycerides 51 mg/dL (30-150); eGFR > 60 See Note
[2024-10-06 08:00] VITALS: BP 140/94; PULSE 77; RESP 16; TEMP 35.9; O2SAT 95
[2024-10-06 08:15] VITALS: BP 140/94; PULSE 77
[2024-10-06] MEDS: amLODIPine BESYLATE 2.5 MG TABLET PO ×2 (08:15→13:55)
[2024-10-06] MEDS: ASPIRIN EC 81 MG TABEC PO (08:16)
--- NOTE | 2024-10-06 10:05 | PC.SS ---
Patient Maria Del Rosario Richey is a 88 Year old female admitted for Transient Ischemic Attack. SS met with patient at bedside to complete initial assessment. Patient appeared to be alert and oriented. Patient reported she lives a home with her son, Cornelius Richey who is her medical decision maker [phone]. Patient reports she does not utilize any source of DME to assist with ambulation. Patient is able to complete all ADL's independently. PCP is Vicente George. At time of discharge patient will return back home. Patient's son will provide transportation. Discharge plan: Home Decision maker: SonCornelius [phone] PCP: Vicente George
--- NOTE | 2024-10-06 10:22 | PC.SS ---
SS follow up note; Patient will discharge today.
--- NOTE | 2024-10-06 11:54 | ESDS_ITS ---
<Statement entered by Eva Villavicencio DO - 10/06/24 12:50> I, Eva Villavicencio DO, attest that I was physically present for the ortiz portions of the service and evaluated the patient with the resident and I reviewed and discussed the case with the resident and agree with the resident's findings and plans of care as documented above Planned Discharge Date 10/06/24 DS: Providers Provider Date of admission: 10/05/24 17:13 Primary care physician: Vicente George MD Admitting Provider: Eva Villavicencio DO Attending Provider on Admission: Eva Villavicencio DO Consults: 10/05/24 16:20 Consult to Neurology / Tele-Neurology Stat Comment: Consulting Provider: Chadwick Hall 10/05/24 17:26 Referral Speech Therapy Stat Comment: frieda palacios 10/05/24 17:32 Referral Physical Therapy Stat Comment: Physician Instructions: Attending Provider on DC: Eva Villavicencio DO Discharging Provider: Dell Gonzalez DO DS: Diagnosis Discharge Diagnosis (1) Brain TIA: Status: Acute Problem List Completed Was Problem List Reviewed/Reconciled?: Yes Hospital Course Hospital Course Hospital course: #Acute TIA #Parkinson #Uncontrolled Hypertension Maria Del Rosario Richey is an 88F with PMHx HTN, TIA, Parkinson's presented to the ED on 10/05/24 for difficulty understanding her own speech. Patient states that around 12pm today she was speaking to her son when she could not understand her own speech. Son at bedside states that he could understand her 100% clearly during this time, however patient states that she could not understand what she was saying. Patient's son states that she was clearly speaking can you hear me? I do not understand what I am saying. Patient's son stated at that time he did not note any facial droop, upper or lower extremity weakness, changes in mentation or confusion. Symptoms persisted for 3 to 4 minutes and subsequently completely resolved by 15 min. Patient was recently admitted to [facility] for similar symptoms 3 weeks ago. Imaging was negative except for carotid stenosis of unspecified site. Discharged with diagnosis of TIA and prescribed DAPT and atorvastatin 80 Mg. However, patient had allergic reaction to Plavix?patient states that she breaks out in severe hives. Plavix discontinued by PCP Dr. George-states that he is going to wait for reaction to resolve until trying her on another anti-platelet therapy. Patient is planned to follow-up with Dr. Griffith vascular surgeon on next Saturday for carotid stenosis. In the emergency department patient was hypertensive at 184/94, was given hydralazine 10 in the emergency department. Subsequent blood pressure on physical examination in the ED 168/82. Rest of vital signs stable. Labs normal, CBC normal. CT head negative U tox negative, urine normal. Patient on exam is ANO x 4, GCS 15, physical exam not significant for any neurological deficits. CN II to XII int act, [id number] normal, finger-nose normal. Strength 5 out of 5 bilaterally upper and lower extremities. Resting tremor on exam- pt says that this is persistent from her Parkinson's. Left lower lip appears minimally if at all drooped. After repeated extensive, repeated questioning with patient and son they both state that this appears to be her normal. Teleneurology consulted in the emergency department and given patient's recent history of TIA recommend observation with repeat MRI. ABCD2 score of 4. NIHSS Score:?1 Patient was admitted for observation, work-up, & management of acute CVA/TIA MRI negative for any signs of acute stroke. Upon reevaluation this a.m. patient states that her symptoms have completely resolved. Patient denies any slurring of speech, abnormal facial drooping, sensorineural changes. Neuroexam normal. Suspect patient had TIA 2/2 uncontrolled BP. Will restart patient on losartan 100mg PO daily. Patient is medically cleared to discharge, and advised to foll ow-up with PCP. Patient advised to follow-up with PCP Dr. George regarding reinitiation of antiplatelet agent and vascular surgeon Dr. Griffith regarding results of suspected carotid stenosis and further management. Patient advised to return to the emergency department if symptoms persist or worsen. Patient agrees and is amenable to discharge. Status at Discharge Cognitive/behavioral status at discharge: Stable at discharge Time Spent with Patient Time attestation: Total time spent providing and/or coordinating discharge services: > 30min Exam Vital Signs Temp Pulse Resp BP Pulse Ox O2 Del Method 96.6 F L 77 16 140/94 H 95 Room Air 10/06/24 08:00 10/06/24 08:15 10/06/24 08:00 10/06/24 08:15 10/06/24 08:00 10/06/24 08:00 Narrative Exam GENERAL: NAD, NC/AT, responsive/cooperative. 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 Strength 5/5 bilaterally UE and LE. Resting tremor on exam. HEENT: Moist mucosa. Eyes open, symmetrical, & clear CARDIO: No chest pain on palpation. Heart RRR, no obvious murmurs PULM: No noted coughing/dyspnea. Lungs CTA B/L, no R/W/R GI: Abdomen soft, nondistended, no pain on palpation. 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 SKIN/MSK/EXT: No wounds/rashes/edema/amputations, no pain on palpation. Pedal pulses present B/L Discharge Plan Plan Patient Disposition: HOME (Self Care) Patient condition on transfer: Stable Prescriptions/Referrals Prescriptions/Med Rec: New losartan 100 mg tablet 100 mg PO QDAY Qty: 30 0RF (DME) Blood Pressure Cuff Misc See Rx Instructions .Route Qty: 1 0RF Rx Instructions: As directed Continued multivitamin Tablet 1 tab PO QAM multivitamin Tablet 1 tab PO QDAY buspirone 5 mg Tablet 5 mg PO HS atorvastatin 80 mg Tablet 80 mg PO QDAY polyethylene glycol 3350 [Miralax] 17 gram Powder In Packet 17 g PO 2 X WEEKLY PRN (Reason: Constipation) aspirin [Justino Low Dose Aspirin] 81 mg Tablet,Delayed Release (Dr/Ec) 81 mg PO QDAY carbidopa-levodopa 10-100 mg Tablet 1 tab PO QID ibuprofen [Advil] 200 mg Tablet 200 mg PO QDAY PRN (Reason: Anxiety) Referrals: Vicente George MD [Primary Care Provider] - Patient/Caregiver Discharge Instructions Other Discharge Activity Instructions:: Please follow-up with PCP within 1 week of discharge. Continue with home medications as prescribed. Continue with losartan 100 mg daily for blood pressure control. Continue daily aspirin 81 mg and atorvastatin. Education Materials: What Is a TIA?, Anatomy of the Brain, Risk Factors for Stroke Print Language: Bangladeshi Stand Alone Forms: Sarahi Award Info., Patient Portal Info Letter, Work/Release Restrictions Discharge Order Discharge Orders: Discharge (Routine); Ordered 10/06/24 Ordered By: Nicole Awan Quality Discharge Quality Measures VTE prophylaxis
[2024-10-06 12:00] VITALS: BP 151/80; PULSE 92; RESP 17; TEMP 36.6; O2SAT 96
--- NOTE | 2024-10-06 13:28 | PC.PT ---
PT eval only. Patient is I with transfers and ambulation without AD .
[2024-10-06 13:55] VITALS: BP 151/90; PULSE 92
== END 2024-10-06 14:14 | disposition home or self-care (01) ==
LOC: SERX 16:23 → SERHOLD 18:26 → S2NX 19:15
PROVIDERS: Registered Nurse General Practice; Admitting Provider Internal Medicine; Emergency Provider Emergency Medicine; PCP Internal Medicine; Visit Provider Internal Medicine
DX: R47.9 Unspecified speech disturbances (principal); I10 Essential (primary) hypertension; G20.A1 Parkinson's disease without dyskinesia, without mention of fluctuations; E78.5 Hyperlipidemia, unspecified; Z86.73 Personal history of transient ischemic attack (TIA), and cerebral infarction without residual deficits
CPT/HCPCS: 36415; 70450; 70544; 80053; 80061; 80307; 81001; 83036; 83615; 83735; 83880; 84100; 84443; 84484; 85025; 85610; 85730; 87081; 92526; 93005; 97162; 99285; G0378; J0360; J1650; A9270